=== PATIENT | female | born 1975 | race Caucasian/White ===

== ENCOUNTER → 2017-02-11 | Outpatient (CLI) | payer BC, OTHER ==
--- NOTE | 2017-02-11 23:16 | DI ---
PA /LATERAL CHEST X-RAY, 02/11/2017 3:37 PM : Clinical History: Chest pain and hiatal hernia. Previous Exam: None at this facility. There is no acute soft tissue or bony abnormality. Heart size is normal. Lungs are clear. Mediastinal structures are normal. There are no pulmonary nodules. IMPRESSION: Normal chest x-ray.
== END ==
LOC: RAD 15:31
PROVIDERS: ATTEND Obstetrics & Gynecology Gynecology
DX: R07.9 Chest pain, unspecified (principal); K44.9 Diaphragmatic hernia without obstruction or gangrene
CPT/HCPCS: 71020

== ENCOUNTER 2017-02-13 18:59 | Emergency (ER) | payer BC, OTHER ==
[2017-02-13] MEDS ORDERED: Sodium Chloride 0.9% 1,000 ML PRIMARY IV ONE (19:10)
[2017-02-13] MEDS ORDERED: Pantoprazole Inj 40 MG in Normal Saline Flush 10 ML IVP ONE (19:10)
[2017-02-13] MEDS ORDERED: NITROGLYCERIN 0.4 MG SL TAB (BOTTLE OF 3) SL PRN (19:10)
[2017-02-13] MEDS ORDERED: ASPIRIN 81 MG (BABY) CHEWABLE TABLET PO ONE (19:10)
[2017-02-13] MEDS ORDERED: MAG HYDROX/AL HYDROX/SIMETH 30 ML SUSP PO ONE (19:10)
[2017-02-13] MEDS ORDERED: NORMAL SALINE 10 ML SYRINGE FLUSH IVP PRN (19:10)
--- NOTE | 2017-02-13 19:14 | EKG ---
[address] [address] Measurements Intervals [place] Rate: 71 P: 57 W[place]: 169 QRS: 54 QRSD: 87 T: 35 QT: 375 QTc: 397 Interpretive Statements SINUS RHYTHM Compared to ECG 11/02/2015 14:18:15 Sinus arrhythmia no longer present Electronically Signed On 02-14-17 10:34:00 MDT by Johnson Cleary [email or web address]
[2017-02-13 19:18] VITALS: RESP 18
[2017-02-13 19:18] LABS: BASOPHILS # (AUTO) 0.04 10*3/UL; BASOPHILS % (AUTO) 0.5 % (0-1); EOSINOPHILS # (AUTO) 0.12 10*3/UL; EOSINOPHILS % (AUTO) 1.6 % (0-8); HEMATOCRIT 42.9 % (37.0-47.0); HEMOGLOBIN 14.5 g/dL (12.0-16.0); LYMPHOCYTES # (AUTO) 2.19 10*3/uL; MEAN CORPUSCULAR HEMOGLOBIN 28.7 PG (27-31); MEAN CORPUSCULAR HGB CONC 33.8 g/dL (33-37); MONOCYTES # (AUTO) 0.77 10*3/UL (0.3-0.8); MONOCYTES % (AUTO) 10.2 % (5-15); NEUTROPHILS # (AUTO) 4.42 10*3/UL; NEUTROPHILS % (AUTO) 58.6 % (50-80); RED BLOOD COUNT 5.05 10^6/uL (4.20-5.40)
[2017-02-13 19:19] LABS: PLATELET MORPHOLOGY COMMENT NORMAL MORPHOLOGY (NORM); RBC MORPHOLOGY COMMENT NORMAL MORPHOLOGY (NORM); WBC MORPHOLOGY COMMENT NORMAL MORPHOLOGY (NORM)
[2017-02-13 19:23] LABS: BLOOD UREA NITROGEN 14 mg/dL (7-22); CALCIUM 9.6 mg/dL (8.7-10.7); EST GLOMERULAR FILTRATION > 60 (>60 ml/min/1.73m(2)); SERUM ALBUMIN 4.5 g/dL (3.5-4.8)
[2017-02-13 19:38] LABS: CREATINE KINASE MB 0.39 NG/ML (0.00-5.00)
[2017-02-13 19:39] LABS: TROPONIN I < 0.012 ng/mL (< 0.040)
--- NOTE | 2017-02-13 22:25 | PDOC ---
Chest Pain HPI - General Chief Complaint: Chest Pain Stated Complaint: CHEST PAIN Date Seen by Provider: 02/13/17 Time Seen by Provider: 19:00 Source: Patient Exam Limitations: POSITIVE: No limitations Treatment Prior to Arrival: REPORTS: None Nurse's Notes Reviewed & Considered: Yes - History of Present Illness Initial Comments: The patient is a 41-year-old female who presents to the emergency room with a chief complaint of "chest pain" for the past week. She describes the pain as "burning" in character. Today around noon she states that the pain became somewhat more prominent. She has no known cardiopulmonary problems. She was seen by her primary care provider a couple of days ago with this complaint and the patient states she was told that the symptoms were probably secondary to GERD, which he patient has a long-standing history of. Patient states she had similar episode about a month ago. Patient has a history of hypertension for which she takes losartan and she also has a history of GERD for which she takes dexilant. No associated dyspnea. No diaphoresis. Body Location Affected: REPORTS: Chest Timing: REPORTS: Constant Duration: <1 week (Approximately a week) Severity: Moderate Persistent/Worse since (date): 02/07/17 Context: REPORTS: Rest Quality: REPORTS: Burning, "Pain" Radiation: REPORTS: None Associated Symptoms: DENIES: Nausea, Vomiting, Diaphoresis, Shortness of Breath , Hurts to Breathe, Palpitations, Productive Cough (blood), Productive Cough ( sputum), Weakness, Dizziness Modifying Factors: improves with: None Reported Similar Symptoms Previously: Yes Recently seen/treated/hospitalized: Yes (as above) Any Prior Injuries Related to Current Complaint?: No - Patient Home Medications Home Medications: Home Medications Dexlansoprazole [Dexilant] 30 mg PO DAILY 02/13/17 Losartan [Cozaar] 50 mg PO DAILY 02/13/17 - Patient Allergies Allergies/Adverse Reactions: Allergies Allergy/AdvReac Type Severity Reaction Status Date / Time Penicillins Allergy Unknown RASH Verified 02/13/17 19:03 Past Medical History - heen HEENT History: Denies History Cardiovascular History: Hypertension Respiratory History: Denies History Gastrointestinal History: GERD, Other (please comment) Additional Gastrointestinal History: EOSINOPHILIC ESOPHAGITIS Genitourinary History: Denies History Endocrine History: Denies History Musculoskeletal History: Denies History Prosthesis or Implant: No Neurological History: Denies History Blood Disorders: Denies History Psychiatric History: Denies History History of Sexually Transmitted Diseases: No Female Reproductive History: Denies History Obstetrical History: Delivery Cancer History: Denies History In Past Year Been Physically Harmed or Verbally Threatened: No History of MDRO: No History of Other Communicable Diseases: No Tobacco Use: Former Smoker Alcohol Use: Other Type of alcohol normally used: Beer How much alcohol do you normally drink a day?: DAILY Substance Use Type: None Previous Surgical History: Yes Type / Date of Surgery: [id number] Significant Family History: Cancer, Hypertension Past Medical History Reviewed: Reviewed - No Changes ROS - Limitations ROS Limitations: No Limitations Constitution: REPORTS: Denies Symptoms Cardiovascular: REPORTS: Chest Pain Respiratory: REPORTS: Denies Resp Symptoms Neurological: REPORTS: Denies Neuro Symptoms Gastrointestinal: REPORTS: Denies GI Symptoms Endocrine: REPORTS: Denies Symptoms Musculoskeletal: REPORTS: Denies MS Symptoms Genitourinary: REPORTS: Denies Symptoms Eyes: REPORTS: Denies Symptoms ENT: REPORTS: Denies Symptoms Skin: REPORTS: Denies Skin Symptoms Lympathic: REPORTS: Denies Lympathic Symptoms Immunologic: POSITIVE: Denies Symptoms Psychiatric: POSITIVE: Denies Psych Symptoms Chest Pain PE - General Appearance General Appearance: REPORTS: Alert, Cooperative, No Acute Distress, No Evidence of Trauma - HEENT HEENT: POSITIVE: Head Inspection Nml, Eyes Inspection Nml, Ears Inspection Nml, Nose Inspection Nml, Oral/Dental Inspect. Nml, Pharynx Inspect. Nml, PERRL, EOMI - Neck Neck: REPORTS: Normal Inspection, No Carotid Bruit - Respiratory Respiratory: REPORTS: No Respiratory Distress, Breath Sounds Normal, Chest Non- Tender - Cardiovascular Cardiovascular: REPORTS: Regular Rate and Rhythm, Heart Sounds Normal, Equal Pulses, Strong Pulses, No Murmur, No Gallop, No Friction Rub, No JVD Peripheral Pulses: Radial (R): 2+, Radial (L): 2+ - Abdomen Abdomen: Soft: (All Quadrants), Normal Bowel Sounds: (All Quadrants), Denies Tenderness: (All Quadrants), No Splenomegaly: (All Quadrants), No Hepatomegaly: (All Quadrants), No Guarding: (All Quadrants), No Rebound: (All Quadrants), No Palpable Pulse: (All Quadrants), No Palpabale Mass: (All Quadrants), No Distention: (All Quadrants), No Rigidity: (All Quadrants) - Skin Skin: REPORTS: Intact, Normal For Race, Warm, Dry, No Rash - Extremities Extremity: Non-Tender: (All Extremities), Normal ROM: (All Extremities), Normal Inspection: (All Extremities) - Neurological / Psychological Neurological: POSITIVE: Oriented X3, 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, Motor Normal, Sensation Normal, 5, 6 Images - Complete Complete: 1 - Area of described pain/discomfort Chest Pain Progress - Results Reviewed by me Xrays/CTs/US Reviewed by me: Yes Discussed with Radiologist: No Radiology Findings: Portable chest x-ray normal by my interpretation; radiologist interpretation pending Lab Results Reviewed: Yes (all normal, including normal cardiac enzymes and d- dimer) Lab Results:: Laboratory Results 02/13/17 Range/Units 19:18 WBC 7.55 (4.8-10.8) 10^3/uL RBC 5.05 (4.20-5.40) 10^6/uL Hgb 14.5 (12.0-16.0) g/dL Hct 42.9 (37.0-47.0) % MCV 85.0 (81-99) FL MCH 28.7 (27-31) PG MCHC 33.8 (33-37) g/dL RDW Std Deviation 43.8 (39-50) fL RDW Coeff of Nacho 14.3 (11.5-14.5) % Plt Count 260 (140-350) 10*3/uL MPV 12.0 (7.4-12.2) FL Immature Gran % (Auto) 0.1 (0-5) % Neut % (Auto) 58.6 (50-80) % Lymph % (Auto) 29.0 (10-50) % [place]ley % (Auto) 10.2 (5-15) % Eos % (Auto) 1.6 (0-8) % Baso % (Auto) 0.5 (0-1) % Immature Gran # (Auto) 0.01 10*3/UL Neut # (Auto) 4.42 10*3/UL Lymph # (Auto) 2.19 10*3/uL [place]ley # (Auto) 0.77 (0.3-0.8) 10*3/UL Eos # (Auto) 0.12 10*3/UL Baso # (Auto) 0.04 10*3/UL WBC Morphology Comment Normal morphology (NORM) Plt Morphology Comment Normal morphology (NORM) RBC Morph Comment Normal morphology (NORM) D-Dimer < 0.19 (0.00-0.59) mg/L Sodium 138 (135-145) meq/L Potassium 3.5 L (3.8-5.2) meq/L Chloride 102 (98-112) meq/L Carbon Dioxide 24 (23-33) meq/L Anion Gap 12 (5-20) BUN 14 (7-22) mg/dL Creatinine 0.8 (0.50-1.20) mg/dL Estimated GFR > 60 (>60 ml/min/1.73m(2)) BUN/Creatinine Ratio 17.50 (6-20) Glucose 94 (78-110) mg/dL Calculated Osmolality 286.0 (267-292) mOsm/kg Calcium 9.6 (8.7-10.7) mg/dL Total Bilirubin 0.6 (0.3-1.2) mg/dL AST 31 (8-39) IU/L ALT 25 (9-52) IU/L Alkaline Phosphatase 68 (38-126) IU/L CK-MB (CK-2) 0.39 (0.00-5.00) NG/ML Troponin I < 0.012 (< 0.040) ng/mL Total Protein 7.5 (6.1-8.0) g/dL Albumin 4.5 (3.5-4.8) g/dL Globulin 3.0 (2.50-4.10) g/dL Albumin/Globulin Ratio 1.50 (1.3-2.0) mg/g EKG Interpreted/Reviewed By Me:: Yes EKG Interpretation:: POSITIVE: Normal Sinus Rhythm, Normal Rate, Normal Intervals, Normal [place], Normal QRS, Normal ST/T - Patient's Progress Pain Medication Addressed: POSITIVE: Yes (No change with nitroglycerin) School/Work Release Addressed: POSITIVE: Not Applicable Re-Examine Time: 20:05 Re-Examine Comment: Patient in no distress. Condition is essentially unchanged Status: POSITIVE: Unchanged, Re-Examined Quality Measure Initiative: CP/AMI: POSITIVE: EKG, ASA - Consult Counseled: POSITIVE: Patient, RE: Lab Results, RE: Radiology Results, RE: DX, RE : Need for F/U (Patient advised of normal electrocardiogram, chest x-ray and laboratory tests. Advised the patient that I'm not completely sure what is the source of her atypical chest pain. I did advise patient that I cannot completely rule out the possibility of cardiac origin. Admission for further evaluation offered to patient, but patient declines. Patient lives close to the hospital and states that she will return any time if her condition worsens in any way whatsoever. I did advise that the patient follow-up with her primary care provider and arrange for a cardiac stress test. Aspirin, 81 mg daily also recommended.) Patient Care Time - Estimated PCT Patient Care Time (In Minutes): 50 Vital Signs - Recent Vital Signs Vital Signs: Vital Signs (Last 8 hours) Pulse Pulse Resp BP Pulse Ox 02/13/17 19:10 71 02/13/17 19:00 75 18 145/105 100 - VS Reviewed Vital Signs Reviewed: Yes Discharge Clinical Impression: Atypical chest pain Discharge Disposition: Discharged to Home Condition: Stable Patient Instructions Given at Discharge: Chest Pain (ED) Additional Instructions: I am not completely sure what the source of your chest discomfort is. Certainly a flareup of your GERD is possible. Your electrocardiogram, chest x- ray, and blood tests in the emergency room are all normal. Blood test for blood clots in the lung and cardiac enzymes, which measure heart damage, were all negative. Having said this, I cannot give you a completely guarantee that your chest discomfort may not have a cardiac origin. Please take one baby aspirin daily. This is a simple prophylaxis against heart attacks and strokes. I would recommend that you do have a cardiac stress test arranged by her primary care provider. I offered to admit shoe to the hospital for further evaluation, the you have declined. Please return any time if condition worsens in any way whatsoever. Follow Up With: NONE,NONE [Primary Care Provider] - (Instructions as above. Follow-up with your primary care provider. Return here anytime if condition worsens in any way.)
--- NOTE | 2017-02-15 21:20 | DI ---
AP CHEST X-RAY, 02/13/2017 7:10 PM : Clinical History: Chest pain Previous Exam: February 11, 2017 There is no acute soft tissue or bony abnormality. Heart size is normal. Lungs are clear. Mediastinal structures are normal. There are no pulmonary nodules. Reading: Normal chest x-ray.
== END 2017-02-13 20:20 | disposition home or self-care (01) ==
LOC: ER 18:59
DX: R07.89 Other chest pain (principal); K21.9 Gastro-esophageal reflux disease without esophagitis; I10 Essential (primary) hypertension
CPT/HCPCS: 71010; 80053; 82553; 84484; 85025; 85379; 93005; 93010; 96374; 99283 ×2; J3490; J7030